=== PATIENT | female | born 1950 | race Caucasian/White ===

== ENCOUNTER 2018-03-31 14:11 | Emergency (ER) | payer MEDICARE, MEDICAID ==
[2018-03-31 14:22] VITALS: BMI 20.7
[2018-03-31 14:57] LABS: BASO # 0.1 K/uL (0.0-0.2); BASO % 1.2 % (0.0-2.0); EOS % 0.4 % (0.0-4.0); LYMPH # 1.2 K/uL (1.0-4.3); LYMPH % 15.8 % (20.0-40.0); MEAN CELL VOLUME 90.2 fL (81.0-99.0); MEAN CORPUSCULAR HEMOGLOBIN 30.1 pg (27.0-31.0); MEAN CORPUSCULAR HGB CONC 33.4 g/dL (33.0-37.0); MEAN PLATELET VOLUME 8.3 fL (7.2-11.7); MONO # 0.4 K/uL (0.0-0.8); MONO % 5.5 % (0.0-10.0); NEUT % 77.1 % (50.0-75.0); RBC 4.31 Mil/uL (3.80-5.20); RED CELL DISTRIBUTION WIDTH 12.6 % (11.5-14.5); WHITE BLOOD COUNT 7.8 K/uL (4.8-10.8)
[2018-03-31 15:13] LABS: ALB/GLOB RATIO 1.4 (1.0-2.1); ALBUMIN 4.9 g/dL (3.5-5.0); ALT/SGPT 36 U/L (9-52); AST/SGOT 49 U/L (14-36); BLOOD UREA NITROGEN 12 mg/dL (7-17); CALCIUM 9.2 mg/dl (8.6-10.4); GFR NON-AFRICAN AMERICAN > 60
--- NOTE | 2018-03-31 15:35 | C.PDOC ---
History Of Present Illness 67 y/o female,w/PMhx of HTN, presents to the ER complaining of dizziness which began when she woke up in the morning. Patient reports that she did not sleep well last night. Patient states that when she woke up, she felt like the room was spinning. Patient notes that she felt generalized weakness. The symptoms resolved after a few minutes. She had something to eat, then she felt nausea and acid reflux. She states that most of the symptoms have resolved however she still has mild headache. Denies having fever,chills, CP, SOB, and vomiting. Time Seen by Provider: 03/31/18 14:36 Chief Complaint (Nursing): High Blood Pressure History Per: Patient History/Exam Limitations: no limitations Onset/Duration Of Symptoms: Hrs Current Symptoms Are (Timing): Still Present Severity: Moderate Past Medical History Reviewed: Historical Data, Nursing Documentation, Vital Signs Vital Signs: Last Vital Signs Temp 98.3 F 03/31/18 15:15 Pulse 76 03/31/18 15:15 Resp 20 03/31/18 15:15 BP 140/59 L 03/31/18 15:15 Pulse Ox 97 03/31/18 15:15 - Medical History PMH: HTN, Hypercholesterolemia Other Surgeries: Hx of surgeries Family History: States: No Known Family Hx - Social History Hx Alcohol Use: No Hx Substance Use: No - Immunization History Hx Tetanus Toxoid Vaccination: No Hx Influenza Vaccination: Yes Hx Pneumococcal Vaccination: Yes Review Of Systems Constitutional: Positive for: Weakness. Negative for: Fever, Chills Cardiovascular: Negative for: Chest Pain Respiratory: Negative for: Shortness of Breath Gastrointestinal: Positive for: Nausea. Negative for: Vomiting, Abdominal Pain Neurological: Positive for: Headache, Dizziness Physical Exam - Physical Exam Appears: Non-toxic, No Acute Distress Skin: Normal Color, Warm, Dry Head: Atraumatic, Normacephalic Eye(s): bilateral: Normal Inspection, PERRL, EOMI Nose: Normal Oral Mucosa: Moist Neck: Supple Chest: Symmetrical Cardiovascular: Rhythm Regular Respiratory: Normal Breath Sounds, No Rales, No Rhonchi, No Wheezing Gastrointestinal/Abdominal: Normal Exam, Soft, No Tenderness, No Guarding, No Rebound Neurological/Psych: Oriented x3, Normal Speech, Normal Motor, Normal Sensation ED Course And Treatment - Laboratory Results Result Diagrams: 03/31/18 14:53 03/31/18 14:53 Lab Results: Total Bilirubin 0.7 mg/dL (0.2-1.3) 03/31/18 14:53 AST 49 U/L (14-36) H 03/31/18 14:53 ALT 36 U/L (9-52) 03/31/18 14:53 Alkaline Phosphatase 98 U/L (38-126) 03/31/18 14:53 Total Protein 8.6 g/dL (6.3-8.3) H 03/31/18 14:53 Albumin 4.9 g/dL (3.5-5.0) 03/31/18 14:53 Globulin 3.6 gm/dL (2.2-3.9) 03/31/18 14:53 Albumin/Globulin Ratio 1.4 (1.0-2.1) 03/31/18 14:53 Lab Interpretation: Abnormal (Na 126, Cl 89.) ECG: Interpreted By Me ECG Rhythm: Sinus Rhythm ECG Interpretation: No Acute Changes O2 Sat by Pulse Oximetry: 97 (RA) Pulse Ox Interpretation: Normal Reevaluation Time: 16:36 Reassessment Condition: Improved (BP improved and patient remains comfortable but is still c/o mild headache. Patient treated with Tylenol and IV saline.) Medical Decision Making Medical Decision Making: Plan: --Labs --UA --ECG Disposition Counseled Patient/Family Regarding: Studies Performed, Diagnosis, Need For Fol lowup - Disposition Referrals: [facility] at [facility] [Outside] Disposition: HOME/ ROUTINE Disposition Time: 17:53 Condition: IMPROVED Instructions: Vertigo (a Type of Dizziness) Forms: 2 Minutes (Irish) - Clinical Impression Clinical Impression: Vertigo - Scribe Statement The provider has reviewed the documentation as recorded by the Scribe Jose Juan Mujica Provider Attestation: All medical record entries made by the Scribe were at my direction and personally dictated by me. I have reviewed the chart and agree that the record accurately reflects my personal performance of the history, physical exam, medical decision making, and the department course for this patient. I have also personally directed, reviewed, and agree with the discharge instructions and disposition.
[2018-03-31 15:46] VITALS: RESP 20; O2SAT 97
[2018-03-31 15:52] LABS: URINE BILIRUBIN NEGATIVE (NEGATIVE); URINE BLOOD 1+ (NEGATIVE); URINE CLARITY Clear (Clear); URINE COLOR Colorless (YELLOW); URINE GLUCOSE (UA) NORMAL (Normal); URINE LEUKOCYTE ESTERASE NEG Leu/uL (Negative); URINE PROTEIN NEGATIVE (NEGATIVE); URINE UROBILINOGEN NORMAL mg/dL (0.2-1.0)
[2018-03-31] MEDS ORDERED: Sodium Chloride 0.9% 1,000 ML IV ONE (16:33)
[2018-03-31] MEDS ORDERED: Sodium Chloride 0.9% 1,000 ML ONE (16:44)
[2018-03-31 17:56] VITALS: BP 127/54; PULSE 64; TEMP 98.5
--- NOTE | 2018-04-01 18:11 | CARD ---
APPROVED REPORT Date of service: 03/31/2018 EKG Measurement Heart [id number] 150P51 [id number] <Conclusion> Normal sinus rhythm Baseline artifact Otherwise normal.
== END 2018-03-31 18:10 | disposition home or self-care (01) ==
LOC: C.ER 14:11
DX: R42 Dizziness and giddiness (principal)
CPT/HCPCS: 80053; 81001; 83735; 84484; 85025; 93005; 96360; 99285; J7030

== ENCOUNTER 2018-04-05 16:50 | Emergency (ER) | payer MEDICARE, MEDICAID ==
[2018-04-05 16:52] VITALS: BMI 20.7
[2018-04-05 17:33] VITALS: RESP 18; TEMP 98.2; O2SAT 98
[2018-04-05 18:07] LABS: BASO % 0.7 % (0.0-2.0); EOS % 0.9 % (0.0-4.0); HEMOGLOBIN 13.2 g/dL (11.0-16.0); LYMPH # 1.6 K/uL (1.0-4.3); LYMPH % 29.8 % (20.0-40.0); MEAN CELL VOLUME 87.7 fL (81.0-99.0); MEAN CORPUSCULAR HEMOGLOBIN 29.2 pg (27.0-31.0); MEAN CORPUSCULAR HGB CONC 33.3 g/dL (33.0-37.0); MEAN PLATELET VOLUME 8.2 fL (7.2-11.7); MONO # 0.4 K/uL (0.0-0.8); MONO % 8.5 % (0.0-10.0); NEUT # 3.2 K/uL (1.8-7.0); NEUT % 60.1 % (50.0-75.0); NRBC % 0.1 % (0.0-2.0); RBC 4.52 Mil/uL (3.80-5.20); RED CELL DISTRIBUTION WIDTH 12.4 % (11.5-14.5); WHITE BLOOD COUNT 5.2 K/uL (4.8-10.8)
[2018-04-05 18:22] LABS: PROTHROMBIN TIME 11.2 SECONDS (9.7-12.2)
[2018-04-05 18:30] LABS: URINE BILIRUBIN NEGATIVE (NEGATIVE); URINE BLOOD 1+ (NEGATIVE); URINE CLARITY Clear (Clear); URINE COLOR Colorless (YELLOW); URINE GLUCOSE (UA) NORMAL (Normal); URINE LEUKOCYTE ESTERASE NEG Leu/uL (Negative); URINE PROTEIN NEGATIVE (NEGATIVE); URINE UROBILINOGEN NORMAL mg/dL (0.2-1.0)
--- NOTE | 2018-04-05 18:30 | RAD ---
Date of service: 04/05/2018 HISTORY: Chest pain COMPARISON: No prior. TECHNIQUE: Chest PA and lateral FINDINGS: LINES AND TUBES: None. LUNG AND PLEURA: The lungs are hyperinflated and there is peribronchial thickening with chronic changes in both lungs. No pleural effusion or pneumothorax. HEART AND MEDIASTINUM: The heart is not enlarged. There are aortic atherosclerotic calcifications present. The hilar and mediastinal contours are within normal limits. SKELETAL STRUCTURES: The bony structures are within normal limits for the patient's age. VISUALIZED UPPER ABDOMEN: Normal. OTHER FINDINGS: None. IMPRESSION: No active pulmonary disease.
[2018-04-05 18:38] LABS: ALB/GLOB RATIO 1.3 (1.0-2.1); ALT/SGPT 32 U/L (9-52); AST/SGOT 56 U/L (14-36); BLOOD UREA NITROGEN 7 mg/dL (7-17); CALCIUM 9.5 mg/dl (8.6-10.4); GFR NON-AFRICAN AMERICAN > 60
[2018-04-05 18:44] LABS: B-TYPE NATRIURETIC PEPTIDE 127 pg/mL (0-900)
--- NOTE | 2018-04-05 18:44 | C.PDOC ---
History Of Present Illness 67 y/o female with a PMHx of HTN presents to the ED for evaluation of feeling "hot, sweaty, with red face" intermittently. Patient reports having a few episodes today. She was monitoring her pressure at home and noticed it was elevated, prompting her to come in. Patient was seen here 1 week ago for similar symptoms, and has not followed up with her PMD since. She reports compliance with her blood pressure medication as well as simvastatin, which is new for the last few weeks. At present time patient is asymptomatic. Otherwise she denies any associated visual changes, chest pain, SOB, palpitations, nausea, vomiting, dizziness, or abdominal pain. Time Seen by Provider: 04/05/18 17:22 Chief Complaint (Nursing): Chest Pain History Per: Patient History/Exam Limitations: no limitations Onset/Duration Of Symptoms: Intermittent Episodes Current Symptoms Are (Timing): Gone Reports Recently: Seen In ED Past Medical History Reviewed: Historical Data, Nursing Documentation, Vital Signs Vital Signs: Last Vital Signs Temp 98.2 F 04/05/18 17:04 Pulse 67 04/05/18 17:04 Resp 18 04/05/18 17:04 BP 147/71 04/05/18 17:04 Pulse Ox 98 04/05/18 17:04 - Medical History PMH: HTN, Hypercholesterolemia Other Surgeries: Right breast surgery Family History: States: Unknown Family Hx - Social History Hx Tobacco Use: No Hx Alcohol Use: No Hx Substance Use: No - Immunization History Hx Tetanus Toxoid Vaccination: No Hx Influenza Vaccination: Yes Hx Pneumococcal Vaccination: Yes Review Of Systems Except As Marked, All Systems Reviewed And Found Negative. Constitutional: Positive for: Sweats, Other ("red face" and feeling hot). Negative for: Fever Eyes: Negative for: Vision Change Cardiovascular: Negative for: Chest Pain, Palpitations Respiratory: Negative for: Shortness of Breath Gastrointestinal: Negative for: Nausea, Vomiting, Abdominal Pain, Diarrhea Musculoskeletal: Negative for: Back Pain Neurological: Negative for: Weakness, Numbness, Headache, Dizziness Physical Exam - Physical Exam Appears: Well, Non-toxic, No Acute Distress Skin: Normal Color, Warm, No Rash Head: Normacephalic Eye(s): bilateral: PERRL Neck: Trachea Midline, Supple Chest: Symmetrical Cardiovascular: Rhythm Regular, No Murmur Respiratory: No Accessory Muscle Use, No Rales, No Rhonchi, No Wheezing, Other (Lungs CTA bilaterally) Gastrointestinal/Abdominal: Soft, No Tenderness, No Distention Extremity: Normal ROM, No Calf Tenderness, No Swelling Neurological/Psych: Oriented x3 Gait: Steady ED Course And Treatment - Laboratory Results Result Diagrams: 04/05/18 18:02 04/05/18 18:02 Lab Results: PT 11.2 SECONDS (9.7-12.2) 04/05/18 18:02 INR 1.0 04/05/18 18:02 APTT 33 SECONDS (21-34) 04/05/18 18:02 Troponin I < 0.0120 ng/mL (0.00-0.120) 04/05/18 18:02 NT-Pro-B Natriuret Pep 127 pg/mL (0-900) 04/05/18 18:02 Total Bilirubin 1.0 mg/dL (0.2-1.3) 04/05/18 18:02 AST 56 U/L (14-36) H 04/05/18 18:02 ALT 32 U/L (9-52) 04/05/18 18:02 Alkaline Phosphatase 91 U/L (38-126) 04/05/18 18:02 Total Protein 8.7 g/dL (6.3-8.3) H 04/05/18 18:02 Albumin 5.0 g/dL (3.5-5.0) 04/05/18 18:02 Globulin 3.7 gm/dL (2.2-3.9) 04/05/18 18:02 Albumin/Globulin Ratio 1.3 (1.0-2.1) 04/05/18 18:02 Urine Color Colorless (YELLOW) 04/05/18 18:13 Urine Clarity Clear (Clear) 04/05/18 18:13 Urine pH 7.0 (5.0-8.0) 04/05/18 18:13 Ur Specific Kirby 1.001 (1.003-1.030) L 04/05/18 18:13 Urine Protein Negative mg/dL (NEGATIVE) 04/05/18 18:13 Urine Glucose (UA) Normal mg/dL (Normal) 04/05/18 18:13 Urine Ketones Negative mg/dL (NEGATIVE) 04/05/18 18:13 Urine Blood 1+ (NEGATIVE) H 04/05/18 18:13 Urine Nitrate Negative (NEGATIVE) 04/05/18 18:13 Urine Bilirubin Negative (NEGATIVE) 04/05/18 18:13 Urine Urobilinogen Normal mg/dL (0.2-1.0) 04/05/18 18:13 Ur Leukocyte Esterase Neg Ashley/uL (Negative) 04/05/18 18:13 Urine RBC (Auto) < 1 /hpf (0-3) 04/05/18 18:13 ECG: Interpreted By Me ECG Rhythm: Sinus Rhythm Interpretation Of ECG: Left axis deviation, incomplete R BBB Rate From EC O2 Sat by Pulse Oximetry: 98 (RA) Pulse Ox Interpretation: Normal Progress Note: Labs, EKG, CXR ordered and reviewed. Disposition - Disposition Forms: [employer] ([place]) - PA / BELL HOLE DIGGER / Resident Statement MD/DO has reviewed & agrees with the documentation as recorded. - Scribe Statement The provider has reviewed the documentation as recorded by the Scribdelfina Phipps All medical record entries made by the Scribe were at my direction and personally dictated by me. I have reviewed the chart and agree that the record accurately reflects my personal performance of the history, physical exam, me dical decision making, and the department course for this patient. I have also personally directed, reviewed, and agree with the discharge instructions and disposition.
--- NOTE | 2018-04-05 18:50 | C.PDOC ---
History Of Present Illness 67 y/o female with a PMHx of HTN presents to the ED for evaluation of feeling "hot, sweaty, with red face" intermittently. Patient reports having a few episodes today. She was monitoring her pressure at home and noticed it was elevated, prompting her to come in. Patient was seen here 1 week ago, 03/31/18, for similar symptoms, and has not followed up with her PMD since. She reports compliance with her blood pressure medication as well as simvastatin, which is new for the last few weeks. At present time patient is asymptomatic. Otherwise she denies headache, dizziness, visual changes, focal deficits, neck pain, chest pain, SOB, palpitations, abd. pain, nausea, vomiting, back pain, denies edema. Ambulatory, not in any apparent distress. Time Seen by Provider: 04/05/18 17:22 Chief Complaint (Nursing): Chest Pain History Per: Patient History/Exam Limitations: no limitations Onset/Duration Of Symptoms: Intermittent Episodes Current Symptoms Are (Timing): Gone Past Medical History Reviewed: Historical Data, Nursing Documentation, Vital Signs Vital Signs: Last Vital Signs Temp 98.2 F 04/05/18 17:04 Pulse 67 04/05/18 17:04 Resp 18 04/05/18 17:04 BP 147/71 04/05/18 17:04 Pulse Ox 98 04/05/18 18:47 - Medical History PMH: HTN, Hypercholesterolemia Other Surgeries: Right breast surgery Family History: States: Unknown Family Hx - Social History Hx Tobacco Use: No Hx Alcohol Use: No Hx Substance Use: No - Immunization History Hx Tetanus Toxoid Vaccination: No Hx Influenza Vaccination: Yes Hx Pneumococcal Vaccination: Yes Review Of Systems Except As Marked, All Systems Reviewed And Found Negative. Constitutional: Positive for: Sweats, Other ("red face" and feeling hot). Negative for: Fever Eyes: Negative for: Vision Change Cardiovascular: Negative for: Chest Pain, Palpitations, Edema Respiratory: Negative for: Cough, Shortness of Breath Gastrointestinal: Negative for: Nausea, Vomiting, Abdominal Pain, Diarrhea Musculoskeletal: Negative for: Back Pain Neurological: Negative for: Weakness, Numbness, Dizziness Physical Exam - Physical Exam Appears: Well, Non-toxic, No Acute Distress Skin: Normal Color, Warm, No Rash Head: Normacephalic Eye(s): bilateral: PERRL Oral Mucosa: Moist Neck: Trachea Midline, Supple Cardiovascular: Rhythm Regular, No Murmur, No JVD, Other ((-) carotid bruits B/L) Respiratory: No Decreased Breath Sounds, No Accessory Muscle Use, No Rales, No Rhonchi, No Stridor, No Wheezing, No Plerual Rub Gastrointestinal/Abdominal: Soft, No Tenderness, No Distention, No Guarding, No Rebound Extremity: Normal ROM, No Pedal Edema, No Calf Tenderness, No Swelling Pulses: Left Dorsalis Pedis: Normal, Right Dorsalis Pedis: Normal Neurological/Psych: Oriented x3, Normal Speech, Normal Cognition, Normal Motor, Normal Sensation, Normal Reflexes Gait: Steady ED Course And Treatment - Laboratory Results Result Diagrams: 04/05/18 18:02 04/05/18 18:02 Lab Results: PT 11.2 SECONDS (9.7-12.2) 04/05/18 18:02 INR 1.0 04/05/18 18:02 APTT 33 SECONDS (21-34) 04/05/18 18:02 Troponin I < 0.0120 ng/mL (0.00-0.120) 04/05/18 18:02 NT-Pro-B Natriuret Pep 127 pg/mL (0-900) 04/05/18 18:02 Total Bilirubin 1.0 mg/dL (0.2-1.3) 04/05/18 18:02 AST 56 U/L (14-36) H 04/05/18 18:02 ALT 32 U/L (9-52) 04/05/18 18:02 Alkaline Phosphatase 91 U/L (38-126) 04/05/18 18:02 Total Protein 8.7 g/dL (6.3-8.3) H 04/05/18 18:02 Albumin 5.0 g/dL (3.5-5.0) 04/05/18 18:02 Globulin 3.7 gm/dL (2.2-3.9) 04/05/18 18:02 Albumin/Globulin Ratio 1.3 (1.0-2.1) 04/05/18 18:02 Urine Color Colorless (YELLOW) 04/05/18 18:13 Urine Clarity Clear (Clear) 04/05/18 18:13 Urine pH 7.0 (5.0-8.0) 04/05/18 18:13 Ur Specific [place]er 1.001 (1.003-1.030) L 04/05/18 18:13 Urine Protein Negative mg/dL (NEGATIVE) 04/05/18 18:13 Urine Glucose (UA) Normal mg/dL (Normal) 04/05/18 18:13 Urine Ketones Negative mg/dL (NEGATIVE) 04/05/18 18:13 Urine Blood 1+ (NEGATIVE) H 04/05/18 18:13 Urine Nitrate Negative (NEGATIVE) 04/05/18 18:13 Urine Bilirubin Negative (NEGATIVE) 04/05/18 18:13 Urine Urobilinogen Normal mg/dL (0.2-1.0) 04/05/18 18:13 Ur Leukocyte Esterase Neg Ashley/uL (Negative) 04/05/18 18:13 Urine RBC (Auto) < 1 /hpf (0-3) 04/05/18 18:13 Lab Interpretation: No Changes Compared To Prior Results ECG: Interpreted By Me ECG Rhythm: Sinus Rhythm Interpretation Of ECG: SR@67/min, Left axis deviation, Incomplete R BBB, no acute T wave or ST-T changes Rate From EC O2 Sat by Pulse Oximetry: 98 (RA) Pulse Ox Interpretation: Normal - Radiology CXR: Interpreted by Me, Read By Radiologist CXR Interpretation: Yes: No Acute Disease - Other Rad CHEST XR X-Ray: Read By Radiologist Interpretation: Accession No. : [id number]. Patient Name / ID : LAURA RIVERA / [id number]. Exam Date : 04/05/2018 17:57:14 ( Approved ). Study Comment : Sex / Age : F / 67Y. Creator : Shoshana Owens. Dictator : Iris Quiles MD. Residential Gas Heat Technician : Patient Services Representative : Iris Quiles MD. Approver2 : Report Date : 04/05/2018 18:24:23. My Comment : . Date of service: 04/05/2018. HISTORY: Chest pain. COMPARISON: No prior. TECHNIQUE: Chest PA and lateral. FINDINGS: LINES AND TUBES: None. LUNG AND PLEURA: The lungs are hyperinflated and there is peribronchial thickening with chronic changes in both lungs. No pleural effusion or pne umothorax. HEART AND MEDIASTINUM: The heart is not enlarged. There are aortic atherosclerotic calcifications present. The hilar and mediastinal contours are within normal limits. SKELETAL STRUCTURES: The bony structures are within normal limits for the patient's age. VISUALIZED UPPER ABDOMEN: Normal. OTHER FINDINGS: None. IMPRESSION: No active pulmonary disease. Progress Note: Labs, EKG, CXR ordered and reviewed. Pt remained stable during the ED evaluation and remained asymptomatic. Afebrile, hemodynamicaly stable. non-toxic. Lungs: CTA B/L, BS equal B/L. CVS: (+)S1S2, reg. Abd: benign, (-) guarding, (-) rebound. Neuorlogicaly intact. Case discussed with and blood work, EKG, CXR review, no acute abnoramlities noted compare to previous v isit week ago. Sx likely relaited to medication side effect. Pt advised to stop simvastatin due to possible side effect. Advised to F/ uwith PMD in 1-2 days for re-eavl. return if any worsening or new changes. Disposition Counseled Patient/Family Regarding: Studies Performed, Diagnosis, Need For Followup - Disposition Referrals: [facility] [Outside] Disposition: HOME/ ROUTINE Disposition Time: 18:57 Condition: STABLE Additional Instructions: STOP- SIMVASTATIN NOW DUE TO POSSIBLE SIDE EFFECT ENCOURAGE FLUIDS FOLLOW UP WITH PMD IN 2-3 DAYS FOR RE-EVALUATION. RETURN TO ED IF ANY WORSENING OR NEW CHANGES. Instructions: Chest Pain, Simvastatin Forms: [employer] (Yi) - Clinical Impression Clinical Impression: Chest discomfort - PA / RECEIVING ROOM CLERK / Resident Statement MD/DO has reviewed & agrees with the documentation as recorded. - Scribe Statement The provider has reviewed the documentation as recorded by the Scribdelfina Phipps All medical record entries made by the Scribe were at my direction and personally dictated by me. I have reviewed the chart and agree that the record accurately reflects my personal performance of the history, physical exam, medical decision making, and the department course for this patient. I have also personally directed, reviewed, and agree with the discharge instructions and disposition.
[2018-04-05 19:47] VITALS: BP 152/68; PULSE 66
--- NOTE | 2018-04-06 12:19 | CARD ---
APPROVED REPORT Date of service: 04/05/2018 EKG Measurement Heart [id number] <Conclusion> Normal sinus rhythm Possible Left atrial enlargement Incomplete right bundle branch block Borderline ECG
== END 2018-04-05 19:49 | disposition home or self-care (01) ==
LOC: C.ER 16:50
DX: R07.89 Other chest pain (principal)